=== PATIENT | female | born 1940 | race Caucasian/White ===

== ENCOUNTER 2017-01-28 06:58 | Day surgery (SDC) | payer OTHER, MEDICARE ==
[2017-01-27 11:55] VITALS: BMI 30.7
[2017-01-28] MEDS ORDERED: LIDOCAINE HCL/PF 2% SDV 5ML VIAL ONE (08:33)
[2017-01-28] MEDS ORDERED: PROPOFOL 20 ML ONE ×3 (08:33)
[2017-01-28 09:17] VITALS: TEMP 97.7
[2017-01-28 09:57] VITALS: BP 116/65; PULSE 62
--- NOTE | 2017-01-31 16:39 | PATH ---
Surgical Pathology Report Patient Name: JESUS ALEXANDER [facility]. Rec. #: [id number] /Age/Gender: 1940 (Age: 76) / F Account: [id number] Location: ASU-ENDOSCOPY Taken: 01/28/2017 Received: 01/28/2017 Reported: 01/31/2017 Physicians: Stacia Trevino M.D. Specimen(s) Received A: BX RECTAL POLYP B: POLYP-DESCENDING COLON BIOPSY C: BX POLYP SIGMOID COLON Clinical History History of colon polyps Colon polyps, diverticulosis Final Diagnosis A. RECTUM, POLYP, BIOPSY: HYPERPLASTIC POLYP. B. DESCENDING COLON, POLYP, BIOPSY: TUBULAR ADENOMA(S). C. SIGMOID, POLYP, BIOPSY: HYPERPLASTIC POLYP. Electronically Signed Sarah Escobar M.D. Gross Description A. Received in formalin, labeled "rectum polyp" is a murillo, irregular portion of soft tissue measuring 0.5 cm. in greatest dimension. The specimen is submitted in toto in one cassette. B. Received in formalin, labeled "descending colon polyps" are 3 murillo, irregular portions of soft tissue ranging from 0.2-0.4 cm. in greatest dimension. The specimens are submitted in toto in one cassette. C. Received in formalin, labeled "sigmoid polyp" are 4 murillo, irregular portions of soft tissue averaging 0.2 cm. in greatest dimension. The specimens are submitted in toto in one cassette. 01/28/201701/28/2017
== END 2017-01-28 10:05 | disposition home or self-care (01) ==
LOC: JASU-ENDO 06:58
PROVIDERS: ATTEND Internal Medicine Gastroenterology
PROC: 0DBM8ZX Excision of Descending Colon, Via Natural or Artificial Opening Endoscopic, Diagnostic (ICD-10-PCS; 2017-01-28)
PROC: 0DBN8ZX Excision of Sigmoid Colon, Via Natural or Artificial Opening Endoscopic, Diagnostic (ICD-10-PCS; 2017-01-28)
PROC: 0DBP8ZX Excision of Rectum, Via Natural or Artificial Opening Endoscopic, Diagnostic (ICD-10-PCS; principal; 2017-01-28 08:00)
DX: Z12.11 Encounter for screening for malignant neoplasm of colon (principal); Z80.0 Family history of malignant neoplasm of digestive organs; K62.1 Rectal polyp; D12.4 Benign neoplasm of descending colon; D12.5 Benign neoplasm of sigmoid colon; K57.30 Diverticulosis of large intestine without perforation or abscess without bleeding; K64.8 Other hemorrhoids
CPT/HCPCS: 88305-TC

== ENCOUNTER 2019-10-24 23:02 | Emergency (ER) | payer OTHER, MEDICARE ==
[2019-10-24] MEDS ORDERED: FLUORESCEIN NA 1 EA STRIP OU ONE (23:12)
[2019-10-24] MEDS ORDERED: TETRACAINE 0.5% HCL 0.6ML DROPPER.BOTTLE OS ONE (23:12)
[2019-10-24] MEDS ORDERED: TETRACAINE 0.5% OPHTH SOLN 2 ML BOTTLE ONE (23:17)
[2019-10-24] MEDS ORDERED: FLUORESCEIN NA 1 EA STRIP ONE (23:17)
--- NOTE | 2019-10-24 23:25 | PDOC ---
Attending Attestation - Resident Resident Name: Hugo Cody - ED Attending Attestation I have performed the following: I have examined & evaluated the patient, The case was reviewed & discussed with the resident, I agree w/resident's findings & plan - HPI HPI: 10/25/19 01:47 see resident hpi - Physicial Exam PE: 10/25/19 01:47 see resident exam - Medical Decision Making 10/25/19 01:48 78-year-old female with left eye injury status post being stuck with a fake plant branch Fluorescein shows no corneal uptake There is a raised irregular area of the left lateral sclera on exam with sub- conjunctival hemorrhage and no obvious foreign body CT scan of the orbits shows no sign of globe rupture, no foreign body within the globe There is a small area laterally which could be air bubble versus wood foreign body externally Case discussed with ophthalmology at [facility] who will see the patient at 10:[address] results provided to patient's family to bring him to the appointment as they were not available at the time of consultation Visual acuity grossly intact Discharge - Discharge Information Problems reviewed: Yes Clinical Impression/Diagnosis: Eye trauma Condition: Stable Disposition: HOME - Follow up/Referral Referrals: Monica Garcia MD [Primary Care Provider] - - Patient Discharge Instructions Patient Printed Discharge Instructions: DI for Eye Contusion Additional Instructions: You were seen in the ED for complaints of eye trauma In the ED you were evaluated with a CT scan of your eye Your results were negative There does not appear to be an acute need for immediate hospitalization. You are advised to follow up with your Primary Care Physician within 1 day. You were given a referral to Dr. Glass at [facility] for tomorrow at 1030. If you prefer your own, make sure to see them by tomorrow. Return to the ED immediately if you experience visual disturbances such as tanya rriness, double vision, tearing, bleeding, loss of vision. Your child was seen in the ED for complaints of fever, sore throat and congestion. In the ED you were evaluated and found to have a R ear infection. There does not appear to be an acute need for immediate hospitalization. You are advised to follow up with your child's Workers' Compensation Commissioner within 1 week. You were given a prescription for Amoxicillin antibiotic to be taken twice a day for 10 days and Ibuprofen to be used as needed. Return to the ED immediately if your child experiences worsening fever >104F, worsening ear pain or sore throat or worsening abdominal pain. - Post Discharge Activity
--- NOTE | 2019-10-24 23:29 | PDOC ---
History of Present Illness - General Chief Complaint: Eye Problem Stated Complaint: EYE INJURY Time Seen by Provider: 10/24/19 23:24 - History of Present Illness Initial Comments: 78 yo female with PMH of cataracts presents after being poked in the eye with an artificial tree branch. Unsure if branch penetrated her eye but it did not need to be removed. She flushed her eye with water afterwards. She noted slight bleeding that spontaneously stopped. She denies any visual changes, photophobia, flickers, lights, distortions. She has not taken anything for pain. She is currently resting comfortably and is not in any pain. Past History - Medical History Allergies/Adverse Reactions: Allergies Allergy/AdvReac Type Severity Reaction Status Date / Time Penicillins Allergy Mild Hives Verified 10/24/19 23:11 Home Medications: Ambulatory Orders Cholecalciferol (Vitamin D3) [Vitamin D] 1,000 unit PO DAILY 02/04/12 Multivitamins [Multivit ([facility] Formulary)] 1 each PO DAILY 02/04/12 Psyllium Husk (with Sugar) [Metamucil Packet] 3.4 gm PO DAILY 01/27/17 Calcium Carbonate/Vitamin D3 [Calcium 600 + Vit D 400 Softgl] 1 each PO DAILY 01/28/17 Anemia: No Asthma: No Cancer: No Cardiac Disorders: No (?CARDIOMYOPATHY) CVA: No COPD: No CHF: No Dementia: No Diabetes: No GI Disorders: Yes Disorders: No HTN: No Hypercholesterolemia: No Liver 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[place], LIVER CYSTS) Seizures: No Thyroid Disease: No - Surgical History Abdominal Surgery: No Appendectomy: Yes Cardiac Surgery: No Cholecystectomy: No Lung Surgery: No Neurologic Surgery: No Orthopedic Surgery: Yes (LEFT CARPAL TUNNEL) - Reproductive History Is Patient Now?: No - Psycho-Social/Smoking History Smoking Status: No Smoking History: Never smoked Number of Cigarettes Smoked Daily: 0 Information on smoking cessation initiated: No - Substance Abuse Hx (Audit-C & DAST Scrn) How often the patient has a drink containing alcohol: Never Score: In Men: 4 or > Positive; In Women: 3 or > Positive: 0 Screen Result (Pos requires Nsg. Audit-10AR): Negative In the last yr the pt used illegal drug/Rx for NonMed reason: No Score: Yes response is considered Positive: 0 Screen Result (Positive result requires Nsg. DAST-10): Negative Review of Systems - Review of Systems Constitutional: No: Chills, Fever HEENTM: No: Eye Pain, Blurred Vision, Recent change in vision Respiratory: No: Cough, Shortness of Breath Cardiac (ROS): No: Chest Pain, Lightheadedness, Palpitations ABD/GI: No: Diarrhea, Nausea, Vomiting : No: Burning, Dysuria Musculoskeletal: No: Joint Pain, Muscle Pain Integumentary: Yes: Lesions. No: Dryness, Erythema, Flushing Neurological: No: Headache, Numbness, Seizure, Tingling, Tremors Psychiatric: No: Anxiety, Depression, Mood Swings Endocrine: No: Intolerance to Cold, Intolerance to Heat *Physical Exam - Vital Signs Last Vital Signs Temp Pulse Resp BP Pulse Ox 98.6 F 71 18 145/87 100 10/24/19 23:09 10/24/19 23:09 10/24/19 23:09 10/24/19 23:09 10/24/19 23:09 - Physical Exam General Appearance: Yes: Nourished, Appropriately Dressed. No: Apparent Distress HEENT: positive: EOMI, [place], Other (subconjunctival blood. no signs of active bleeding. no sings of penetration. florescin dye reveals a 1cm signs of trauma in her left eye. scleral abrasian not extending to the cornea. 20/70 in her right eye, 20/100 in her left eye. ). negative: Scleral Icterus (R) Respiratory/Chest: positive: Lungs Clear, Normal Breath Sounds. negative: Chest Tender Cardiovascular: positive: Regular Rhythm, Regular Rate, S1, S2 Gastrointestinal/Abdominal: positive: Flat, Soft. negative: Tender Musculoskeletal: positive: Normal Inspection. negative: CVA Tenderness Extremity: positive: Normal Inspection, Normal Range of Motion Integumentary: positive: Normal Color, Dry, Warm Neurologic: positive: air hose coupler II-XII NML intact, Fully Oriented, Alert, Normal Mood/Affect ED Treatment Course - Medications Given in the ED: ED Medications Discontinued Medications Generic Name Dose Route Start Last Admin Trade Name Freq PRN Reason Stop Dose Admin Fluorescein Sodium 2 ea 10/24/19 23:12 10/24/19 23:18 Fluorets - OU 10/24/19 23:13 2 ea ONCE ONE Administration Tetracaine HCl 1 drop 10/24/19 23:12 10/24/19 23:18 Tetravisc 0.5% Eye Drops - OS 10/24/19 23:13 1 drop ONCE ONE Administration Medical Decision Making - Medical Decision Making 78 yo with PMH of cataracts presents after being poked in the eye with a branch. Flourescin dye shows scleral abrasion not extending to the cornea. CT orbit without contrast read is pending. We will contact them if reading comes back positive for emergent intervention. Spoke with Dr. Glass at [facility] who said based on the exam findings, she most likely has a superficial sclera abrasion. Recommended CT orbit without contrast. He suggested discharging her and will be able to see her on 10/24 at 1030am. Pt prefers to go to her own slurry man but will be given a referral regardless. Pt stable for discharge Discharge - Discharge Information Problems reviewed: Yes Clinical Impression/Diagnosis: Eye trauma Condition: Stable - Admission No - Follow up/Referral Referrals: Monica Garcia MD [Primary Care Provider] - - Patient Discharge Instructions Patient Printed Discharge Instructions: DI for Eye Contusion Additional Instructions: You were seen in the ED for complaints of eye trauma In the ED you were evaluated with a CT scan of your eye Your results were negative There does not appear to be an acute need for immediate hospitalization. You are advised to follow up with your Primary Care Physician within 1 day. You were given a referral to Dr. Glass at [facility] for tomorrow at 1030. If you prefer your own, make sure to see them by tomorrow. Return to the ED immediately if you experience visual disturbances such as blurriness, double vision, tearing, bleeding, loss of vision. Your child was seen in the ED for complaints of fever, sore throat and congestion. In the ED you were evaluated and found to have a R ear infection. There does not appear to be an acute need for immediate hospitalization. You are advised to follow up with your child's Batchmaker within 1 week. You were given a prescription for Amoxicillin antibiotic to be taken twice a day for 10 days and Ibuprofen to be used as needed. Return to the ED immediately if your child experiences worsening fever >104F, worsening ear pain or sore throat or worsening abdominal pain. - Post Discharge Activity
[2019-10-24 23:31] VITALS: BP 145/87; PULSE 71; TEMP 98.6; BMI 31.6
== END 2019-10-25 00:54 | disposition home or self-care (01) ==
LOC: JER 23:02
DX: S05.92XA Unspecified injury of left eye and orbit, initial encounter (principal); W22.8XXA Striking against or struck by other objects, initial encounter
CPT/HCPCS: 70480-TC; 99284-25

== ENCOUNTER 2021-08-05 10:39 | Emergency (ER) | payer OTHER, MEDICARE ==
[2021-08-05] MEDS ORDERED: BEBTELOVIMAB (EUA) 175 MG/2 ML VIAL IVPUSH ONE (10:42)
[2021-08-05 11:09] VITALS: TEMP 97.3; BMI 32.8
[2021-08-05 12:12] VITALS: BP 146/73; PULSE 79
[2021-08-05 12:20] LABS: BASO % 0.3 % (0-2.0); EOS % 0.6 % (0-4.5); HEMATOCRIT 40.1 % (32.4-45.2); HEMOGLOBIN 13.5 GM/dL (10.7-15.3); LYMPH % 16.4 % (8-40); MCH 28.9 pg (25.7-33.7); MCHC 33.6 g/dl (32.0-36.0); MEAN PLT VOLUME 9.4 fl (7.5-11.1); MONO % 7.7 % (3.8-10.2); PLATELET COUNT 259 10^3/uL (134-434); RBC 4.66 M/mm3 (3.60-5.2); RDW 13.5 % (11.6-15.6); WHITE BLOOD COUNT 7.6 K/mm3 (4.0-10.0)
[2021-08-05 12:47] LABS: CALCIUM 9.4 mg/dL (8.5-10.1)
[2021-08-05 12:48] LABS: ALBUMIN 3.9 g/dl (3.4-5.0)
[2021-08-05 12:50] LABS: CREATININE 0.6 mg/dL (0.55-1.3)
[2021-08-05 12:51] LABS: BILIRUBIN,TOTAL 0.8 mg/dL (0.2-1)
[2021-08-05 12:52] LABS: TOT PROT 7.1 g/dl (6.4-8.2)
== END 2021-08-05 12:15 | disposition home or self-care (01) ==
LOC: JCOVINFU 10:39 → JER 10:39 → JCOVINFU 12:15
PROC: 3E033NZ Introduction of Analgesics, Hypnotics, Sedatives into Peripheral Vein, Percutaneous Approach (ICD-10-PCS; principal; 2021-08-05)
DX: U07.1 COVID-19 (principal)
CPT/HCPCS: 36415; 80053; 80061; 83036; 85025; 96374; 99284-25

== ENCOUNTER 2022-04-06 15:49 | Inpatient (IN) | payer OTHER, MEDICARE ==
[2022-04-06 15:55] VITALS: BMI 34.0
[2022-04-06] MEDS ORDERED: ACETAMINOPHEN 1000 MG/100 ML BAG IVPB ONE (16:02)
[2022-04-06] MEDS ORDERED: REMDESIVIR 200 MG in SODIUM CHLORIDE 250 ML IVPB ONE (16:26)
[2022-04-06] MEDS ORDERED: DEXAMETHASONE SOD PHOSPHATE 10 MG/1 ML VIAL IVPUSH ONE (16:26)
[2022-04-06] MEDS ORDERED: SODIUM CHLORIDE 1,000 ML IV STA (16:26)
[2022-04-06] MEDS ORDERED: DEXAMETHASONE SOD PHOSPHATE 10 MG/1 ML VIAL ONE (16:33)
[2022-04-06] MEDS ORDERED: ACETAMINOPHEN INJECTION 100 ML IVPB ONE (16:34)
[2022-04-06 16:50] LABS: VENOUS BASE EXCESS 2.2 mmol/L (-2-2); VENOUS O2 SATURATION 85.8 % (70-80); VENOUS PCO2 36.1 mmHg (38-52); VENOUS PH 7.469 (7.310-7.410)
[2022-04-06 16:54] LABS: BASO % 0.5 % (0-2.0); EOS % 0.3 % (0-4.5); HEMATOCRIT 35.9 % (32.4-45.2); LYMPH % 11.3 % (8-40); MCH 28.7 pg (25.7-33.7); MCHC 33.4 g/dl (32.0-36.0); MEAN CELL VOLUME 85.8 fl (80-96); MEAN PLT VOLUME 9.1 fl (7.5-11.1); MONO % 9.2 % (3.8-10.2); NEUT % 78.7 % (42.8-82.8); PLATELET COUNT 238 10^3/uL (134-434); RBC 4.19 M/mm3 (3.60-5.2); RDW 13.3 % (11.6-15.6); WHITE BLOOD COUNT 7.6 K/mm3 (4.0-10.0)
[2022-04-06 17:01] LABS: INR 1.17 (0.83-1.09); PROTHROMBIN TIME (PATIENT) 13.5 SEC (9.7-13.0)
[2022-04-06 17:03] LABS: ACTIVATED PTT 26.7 SECONDS (25.2-36.5)
[2022-04-06 17:17] LABS: EPI CELLS 5 /uL (0-25.1); HYALINE CASTS 0 /uL (0-3.1); URINE APPEARANCE CLOUDY; URINE BACTERIA 13 /uL (0-1359); URINE BILIRUBIN NEGATIVE (NEGATIVE); URINE COLOR YELLOW; URINE GLUCOSE (UA) NEGATIVE (NEGATIVE); URINE KETONE NEGATIVE (NEGATIVE); URINE LEUK ESTERASE TRACE (NEGATIVE); URINE NITRITE NEGATIVE (NEGATIVE); URINE PROTEIN NEGATIVE (NEGATIVE); URINE RBC 10 /uL (0-23.9); URINE UROBILINOGEN 0.2 mg/dL (0.2-1.0); URINE WBC 13 /uL (0-25.8)
[2022-04-06 17:20] LABS: ALBUMIN 3.5 g/dl (3.4-5.0); CALCIUM 8.7 mg/dL (8.5-10.1)
[2022-04-06 17:21] LABS: BLOOD UREA NITROGEN 12.9 mg/dL (7-18)
[2022-04-06 17:24] LABS: CREATININE 0.6 mg/dL (0.55-1.3)
[2022-04-06 17:25] LABS: BILIRUBIN,TOTAL 0.7 mg/dL (0.2-1); TOT PROT 6.5 g/dl (6.4-8.2)
[2022-04-06] MEDS ORDERED: POTASSIUM CHLORIDE TABS 20 MEQ TABLET.ER (FP) PO ONE (19:05)
[2022-04-06] MEDS ORDERED: POTASSIUM CHLORIDE ORAL LIQUID 20 MEQ/15 ML ONE (19:27)
[2022-04-06] MEDS ORDERED: ASPIRIN 81 MG CHEWABLE TABLETS PO ONE (19:35)
[2022-04-06] MEDS ORDERED: ASPIRIN 81 MG CHEWABLE TABLETS ONE (19:39)
[2022-04-06] MEDS ORDERED: ACETAMINOPHEN 325 MG TABLET (FP) PO PRN (23:20)
[2022-04-07 00:17] LABS: MAGNESIUM 1.9 mg/dL (1.8-2.4)
[2022-04-07] MEDS ORDERED: SODIUM CHLORIDE 1,000 ML IV SCH (03:30)
[2022-04-07] MEDS ORDERED: ALBUTEROL SO4 HFA INHALER IH PRN (03:47)
[2022-04-07 07:35] LABS: BASO % 0.1 % (0-2.0); HEMATOCRIT 37.1 % (32.4-45.2); HEMOGLOBIN 12.3 GM/dL (10.7-15.3); MCH 28.8 pg (25.7-33.7); MCHC 33.2 g/dl (32.0-36.0); MEAN CELL VOLUME 86.6 fl (80-96); MEAN PLT VOLUME 9.3 fl (7.5-11.1); MONO % 5.8 % (3.8-10.2); NEUT % 83.1 % (42.8-82.8); PLATELET COUNT 225 10^3/uL (134-434); RBC 4.29 M/mm3 (3.60-5.2); RDW 13.6 % (11.6-15.6); WHITE BLOOD COUNT 7.3 K/mm3 (4.0-10.0)
[2022-04-07 07:57] LABS: CHLORIDE 108 mmol/L (98-107); SODIUM 142 mmol/L (136-145)
[2022-04-07 08:02] LABS: ALBUMIN 3.1 g/dl (3.4-5.0); ANION GAP 8 MMOL/L (8-16); BLOOD UREA NITROGEN 12.7 mg/dL (7-18); CALCIUM 8.5 mg/dL (8.5-10.1); CO2 26 mmol/L (21-32); GLUCOSE,RANDOM 120 mg/dL (74-106)
[2022-04-07 08:05] LABS: CHOLESTEROL 152 mg/dL (50-200); CREATININE 0.5 mg/dL (0.55-1.3); SGOT/AST 27 U/L (15-37); SGPT/ALT 33 U/L (13-61); TRIGLYCERIDES 56 mg/dL (0-150)
[2022-04-07 08:06] LABS: BILIRUBIN,TOTAL 0.5 mg/dL (0.2-1); LDL CHOLESTEROL (ONLY SJRH) 62 mg/dL (5-100)
[2022-04-07 08:07] LABS: ALK PHOS 48 U/L (45-117); TOT PROT 6.1 g/dl (6.4-8.2)
[2022-04-07 08:08] LABS: HDL CHOLESTEROL 80 mg/dL (40-60)
[2022-04-07] MEDS: guaiFENesin 200 MG/10 ML 10 ML UNIT-DOSE CUPS PO PRN (09:54)
[2022-04-07] MEDS: DEXAMETHASONE SOD PHOSPHATE 4 MG/1 ML VIAL IVPUSH SCH (09:55)
[2022-04-07] MEDS: ENOXAPARIN NA (PORCINE) 40 MG/0.4 ML DISP.SYRIN SQ SCH (09:55)
[2022-04-07] MEDS: ASPIRIN 81 MG CHEWABLE TABLETS PO SCH (09:56)
[2022-04-07] MEDS: MULTIVITAMINS (DAILY MVI) TABLET (FP) PO SCH (09:56)
[2022-04-07] MEDS: REMDESIVIR 100 MG in SODIUM CHLORIDE 250 ML IVPB SCH (10:54)
[2022-04-08 04:35] VITALS: RESP 14
[2022-04-08] MEDS: DEXAMETHASONE SOD PHOSPHATE 4 MG/1 ML VIAL IVPUSH SCH (09:30)
[2022-04-08] MEDS: ASPIRIN 81 MG CHEWABLE TABLETS PO SCH (09:31)
[2022-04-08] MEDS: MULTIVITAMINS (DAILY MVI) TABLET (FP) PO SCH (09:31)
[2022-04-08] MEDS: ENOXAPARIN NA (PORCINE) 40 MG/0.4 ML DISP.SYRIN SQ SCH (09:32)
[2022-04-08] MEDS: REMDESIVIR 100 MG in SODIUM CHLORIDE 250 ML IVPB SCH (10:22)
[2022-04-08] MEDS: guaiFENesin 200 MG/10 ML 10 ML UNIT-DOSE CUPS PO PRN (11:33)
[2022-04-08] MEDS ORDERED: SODIUM CHLORIDE 0.45%/POT 20 MEQ/1,000 ML INFUS.BAG IV SCH (12:00)
[2022-04-08 12:53] VITALS: BP 132/82
[2022-04-08 14:21] VITALS: TEMP 98.6
[2022-04-08 15:43] VITALS: PULSE 85
== END 2022-04-08 15:51 | disposition home or self-care (01) | DRG 177 ==
LOC: JER 15:49 → JERBED 19:53 → J2W 22:22
PROVIDERS: ADMIT Internal Medicine; ATTEND Internal Medicine
PROC: XW033E5 Introduction of Remdesivir Anti-infective into Peripheral Vein, Percutaneous Approach, New Technology Group 5 (ICD-10-PCS; principal; 2022-04-06)
DX: U07.1 COVID-19 (principal); J12.82 Pneumonia due to coronavirus disease 2019; I24.8 Other forms of acute ischemic heart disease; K76.89 Other specified diseases of liver; R77.8 Other specified abnormalities of plasma proteins; K75.81 Nonalcoholic steatohepatitis (NASH); R09.02 Hypoxemia; I44.7 Left bundle-branch block, unspecified; H26.9 Unspecified cataract; R53.1 Weakness; W18.30XA Fall on same level, unspecified, initial encounter; Y92.89 Other specified places as the place of occurrence of the external cause
CPT/HCPCS: 0241U-QW; 36415; 71045-TC-FY; 80053; 80061; 81003; 82728; 82803; 83605; 83615; 83735; 84484; 85025; 85610; 85730; 86140; 86850; 86900; 86901; 87040; 87086; 93005; 93010; 94761; 97116-GP; 97162-GP; 99285-25; C9399; J1100